=== PATIENT | male | born 1950 | race Caucasian/White ===

== ENCOUNTER 2021-11-10 12:57 | Emergency (ER) | payer BC ==
--- NOTE | 2021-11-10 16:03 | RAD REPORT ---
EXAM DESCRIPTION: USExtremity Venous Uni Ltd11/10/2021 3:55 pm CLINICAL HISTORY: Right leg pain COMPARISON: None. FINDINGS: Right common femoral, superficial femoral, popliteal and right posterior tibial veins are compressible and demonstrate augmentation. Doppler demonstrates good flow. 4.3 centimeter right popliteal cyst Grayscale, color and spectral analysis performed on all vessels IMPRESSION: No evidence of deep venous thrombosis involving the right lower extremity. 4.3 centimeter right popliteal cyst
--- NOTE | 2021-11-10 16:04 | RAD REPORT ---
EXAM DESCRIPTION: US - Lower Extremity Artery Uni Ltd - 11/10/2021 3:55 pm CLINICAL HISTORY: Leg pain COMPARISON: None FINDINGS: The right common femoral, superficial femoral,popliteal, dorsalis pedis and posterior tibial arteries bilaterally demonstrate triphasic waveforms No significant stenosis. No occlusion Grayscale, color and spectral analysis performed on all vessels IMPRESSION: Unremarkable exam
--- NOTE | 2021-11-10 16:46 | RAD REPORT ---
EXAM DESCRIPTION: RAD - Foot Right 3 View - 11/10/2021 4:05 pm CLINICAL HISTORY: Right foot pain FINDINGS: No fracture or dislocation is seen Very large plantar calcaneal spur Spurs extend off of dorsal aspect of the hind and midfoot.
--- NOTE | 2021-11-10 16:57 | EDPHYS ---
Physician Documentation [facility] Name: Laron Gaona Age: 71 yrs Sex: Male : 1950 Arrival Date: 11/10/2021 Time: 13:03 Bed 20 Private MD: ED Physician Oz Simpson HPI: 11/10 15:10 This 71 yrs old Male presents to ER via Ambulatory with complaints of Foot Pain - Right.cp 15:10 The patient presents with pain, that is acute. The complaints affect the right foot. cp Context: resulted from an unknown cause, the patient can fully bear weight, the patient is able to ambulate, with mild difficulty, Problem is a result from a previous injury: No. 15:10 Onset: The symptoms/episode began/occurred 3 day(s) ago. cp 15:10 Modifying factors: the symptoms are aggravated by weight bearing. cp Historical: - Allergies: 13:41 No Known Allergies; ap3 - Home Meds: 13:41 levothyroxine 112 mcg tab [Active]; ap3 - PMHx: 13:41 Hypothyroidism; ap3 - Immunization history:: Client reports having NOT received the Covid vaccine. Pneumococcal vaccine is not up to date, Flu vaccine is not up to date. - Social history:: Smoking status: Patient denies any tobacco usage or history of. ROS: 15:15 MS/extremity: Positive for pain, tenderness, of the right foot, Negative for injury or cp acute deformity, decreased range of motion, paresthesias. 15:15 Constitutional: Negative for body aches, chills, fever, poor PO intake. cp 15:15 Cardiovascular: Negative for chest pain, palpitations. 15:15 Respiratory: Negative for cough, shortness of breath, wheezing. 15:15 Abdomen/GI: Negative for abdominal pain, nausea, vomiting, and diarrhea. 15:15 All other systems are negative. Exam: 15:22 Constitutional: The patient appears in no acute distress, alert, awake, non-toxic, well cp developed, well nourished. 15:22 Head/Face: Normocephalic, atraumatic. cp 15:22 Cardiovascular: Rate: normal, Rhythm: regular, Pulses: Pulses are 2+ in right dorsalis pedis artery. Edema: is not appreciated, JVD: is not appreciated. 15:22 Respiratory: the patient does not display signs of respiratory distress, Respirations: normal, no use of accessory muscles, no retractions. 15:22 Musculoskeletal/extremity: Extremities: grossly normal except: noted in the right foot along first and second metatarsal phalangeal joints: pain, swelling, tenderness, There is no evidence of erythema, the right foot Sensation intact. 15:22 Skin: cellulitis, is not appreciated, no rash present. Vital Signs: 13:39 BP 159 / 60; Pulse 70; Resp 16; Temp 98.8; Pulse Ox 97% ; Weight 108.86 kg; Height 5 ap3 ft. 8 in. (172.72 cm); Pain 6/10; 17:23 BP 154 / 77; Pulse 59; Resp 18; Pulse Ox 99% on R/A; ic1 13:39 Body Mass Index 36.49 (108.86 kg, 172.72 cm) ap3 MDM: 14:54 Patient medically screened. cp 15:30 Differential diagnosis: closed fracture, contusion, gout, cellulitis, DVT, arterial cp occlusion. 16:55 Data reviewed: vital signs, nurses notes, radiologic studies, plain films, ultrasound. cp 16:55 Counseling: I had a detailed discussion with the patient and/or guardian regarding: the cp historical points, exam findings, and any diagnostic results supporting the discharge/admit diagnosis, radiology results, the need for outpatient follow up, a family practitioner, to return to the emergency department if symptoms worsen or persist or if there are any questions or concerns that arise at home. Response to treatment: the patient's symptoms have mildly improved after treatment, and as a result, I will discharge patient. 11/10 14:59 Order name: XRAY Foot RIGHT 3 View; Complete Time: 16:52 cp 11/10 14:59 Order name: Extremity Venous Unilateral Ltd; Complete Time: 16:32 cp 11/10 16:32 Interpretation: Report reviewed. cp 11/10 14:59 Order name: Lower Extremity Artery Uni Ltd; Complete Time: 16:32 cp 11/10 16:32 Interpretation: Report reviewed. cp Administered Medications: No medications were administered Disposition: 19:38 Co-signature as Attending Physician, Oz Simpson MD I agree with the assessment and kdr plan of care. Disposition Summary: 11/10/21 16:56 Discharge Ordered Location: Home cp Problem: new cp Symptoms: have improved cp Condition: Stable cp Diagnosis - Pain in right foot cp Followup: cp - With: Private Physician - When: 2 - 3 days - Reason: Worsening of condition Discharge Instructions: - Discharge Summary Sheet cp - Foot Pain cp Forms: - Medication Reconciliation Form cp - Thank You Letter cp - Antibiotic Education cp - Prescription Opioid Use cp Prescriptions: - Diclofenac Sodium 75 mg Oral Tablet Sustained Release - take 1 tablet by ORAL route 2 times per day; 30 tablet; Refills: 0, Product cp Selection Permitted Signatures: Dispatcher [employer] Oz Fregoso MD MD kdr Page, Corey, PA PA cp Leonor Wooten, RN RN ap3
--- NOTE | 2021-11-10 16:57 | ER ---
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 He descries the pain as a burning feeling. Patient denies recent trauma to the foot, but reports that he doesn't take good care of his toenails. Coronavirus screen: At this time, the client does not indicate any symptoms associated with coronavirus-19. Ebola Screen: No symptoms or risks identified at this time. Initial Sepsis Screen: Does the patient meet any 2 criteria? No. Patient's initial sepsis screen is negative. Does the patient have a suspected source of infection? No. Patient's initial sepsis screen is negative. Risk Assessment: Do you want to hurt yourself or someone else? Patient reports no desire to harm self or others. Onset of symptoms was November 07, 2021. 13:39 Method Of Arrival: Ambulatory ap3 13:39 Acuity: JANE 4 ap3 13:45 Chief complaint:. ap3 Triage Assessment: 13:43 General: Appears in no apparent distress. Behavior is calm, cooperative. Pain: ap3 Complains of pain in right foot Pain currently is 6 out of 10 on a pain scale. Quality of pain is described as burning, Pain began 2-3 days ago. Neuro: Level of Consciousness is awake, alert, obeys commands, Oriented to person, place, time, situation, Appropriate for age Gait is unsteady, Speech is normal. Respiratory: Airway is patent Respiratory effort is even, unlabored, Respiratory pattern is regular, symmetrical. Musculoskeletal:. Historical: - Allergies: 13:41 No Known Allergies; ap3 - Home Meds: 13:41 levothyroxine 112 mcg tab [Active]; ap3 - PMHx: 13:41 Hypothyroidism; ap3 - Immunization history:: Client reports having NOT received the Covid vaccine. Pneumococcal vaccine is not up to date, Flu vaccine is not up to date. - Social history:: Smoking status: Patient denies any tobacco usage or history of. Screenin:46 Abuse screen: Denies threats or abuse. Nutritional screening: No deficits noted. ap3 Tuberculosis screening: No symptoms or risk factors identified. 14:57 Fall Risk None identified. ic1 Assessment: 14:57 General: Appears in no apparent distress. uncomfortable, Behavior is calm, cooperative, ic1 appropriate for age. Pain: Complains of pain in right first toe. Neuro: Level of Consciousness is awake, alert, obeys commands, Oriented to person, place, time, situation. Cardiovascular: Reports None. Respiratory: No deficits noted. GI: No deficits noted. : No deficits noted. EENT: No deficits noted. Derm: No deficits noted. Musculoskeletal: No deficits noted. 16:33 Reassessment: Patient appears in no apparent distress at this time. No changes from ic1 previously documented assessment. Patient and/or family updated on plan of care and expected duration. Pain level reassessed. Patient is alert, oriented x 3, equal unlabored respirations, skin warm/dry/pink. Vital Signs: 13:39 BP 159 / 60; Pulse 70; Resp 16; Temp 98.8; Pulse Ox 97% ; Weight 108.86 kg; Height 5 ap3 ft. 8 in. (172.72 cm); Pain 6/10; 17:23 BP 154 / 77; Pulse 59; Resp 18; Pulse Ox 99% on R/A; ic1 13:39 Body Mass Index 36.49 (108.86 kg, 172.72 cm) ap3 ED Course: 13:03 Patient arrived in ED. kz 13:41 Triage completed. ap3 13:46 Arm band placed on right wrist. ap3 14:40 Mitesh Barnhart PA is PHCP. cp 14:40 Oz Simpson MD is Attending Physician. cp 14:48 Lisa Rios, DUTCH is Primary Nurse. ic1 14:57 Patient has correct armband on for positive identification. Bed in low position. Call ic1 light in reach. Side rails up X2. 14:57 No provider procedures requiring assistance completed. ic1 15:55 US Extremity Venous Unilateral Ltd In Process Unspecified. EDMS 15:55 US Lower Extremity Artery Uni Ltd In Process Unspecified. EDMS 16:05 XRAY Foot RIGHT 3 View In Process Unspecified. EDMS 17:23 Patient did not have IV access during this emergency room visit. ic1 Administered Medications: No medications were administered Outcome: 16:56 Discharge ordered by . amy 17:23 Discharged to home ambulatory. ic1 17:23 Condition: stable 17:23 Discharge instructions given to patient, Instructed on discharge instructions, follow up and referral plans. Demonstrated understanding of instructions, follow-up care, medications, Prescriptions given X 1. 17:24 Patient left the ED. 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 He descries the pain as a burning feeling. Patient denies recent trauma to the foot, but reports that he doesn't take good care of his toenails. ap3
[2021-11-10 17:29] VITALS: TEMP 98.8
[2021-11-10 17:30] VITALS: BP 154/77; O2SAT 99
== END 2021-11-10 17:24 | disposition home or self-care (01) ==
LOC: ER 12:57
DX: M79.671 Pain in right foot (principal); E03.9 Hypothyroidism, unspecified
CPT/HCPCS: 93926; 93971; 99283